=== PATIENT | male | born 1995 | race Caucasian/White ===

== ENCOUNTER 2019-05-24 19:52 | Emergency (ER) | payer MEDICAID ==
[~2019-05-24] VITALS: Ht 185.4 cm; Wt 137.6 kg
[2019-05-24 20:21] VITALS: Ht 185.4 cm; Wt 137.6 kg
[2019-05-25 00:06] VITALS: BP 162/74
== END 2019-05-25 00:06 | disposition home or self-care (01) ==
LOC: ED 19:52
DX: S81.002A Unspecified open wound, left knee, initial encounter (principal); L08.9 Local infection of the skin and subcutaneous tissue, unspecified; W01.0XXA Fall on same level from slipping, tripping and stumbling without subsequent striking against object, initial encounter; Y93.89 Activity, other specified; Y92.89 Other specified places as the place of occurrence of the external cause; Y99.8 Other external cause status
CPT/HCPCS: J0696